=== PATIENT | male | born 1995 | race Caucasian/White ===

== ENCOUNTER 2017-01-27 04:46 | Emergency (ER) | payer SELFPAY ==
[~2017-01-27] VITALS: Ht 165.1 cm; Wt 82.0 kg
[2017-01-27 04:50] VITALS: BP 142/91
== END 2017-01-27 12:52 | disposition left against medical advice (07) ==
LOC: ER 10:46
DX: M54.2 Cervicalgia (principal); M25.511 Pain in right shoulder; Z53.21 Procedure and treatment not carried out due to patient leaving prior to being seen by health care provider